=== PATIENT | female | born 1930 | race Asian ===

== ENCOUNTER 2016-08-18 05:50 | Inpatient (IN) | payer OTHER ==
[~2016-08-18] VITALS: Ht 152.4 cm; Wt 67.6 kg
[2016-08-18 07:37] LABS: BASOPHILS # (AUTO) 0.1 K/uL (0.00-0.22); BASOPHILS % (AUTO) 1.3 % (0.0-2.0); EOSINOPHILS # (AUTO) 0.2 K/uL (0-0.4); EOSINOPHILS % (AUTO) 2.3 % (0.0-4.0); HEMATOCRIT 39.1 % (36-48); HEMOGLOBIN 13.1 g/dL (12.0-16.0); LYMPHOCYTES # (AUTO) 2.1 K/uL (2.5-16.5); LYMPHOCYTES % (AUTO) 25.4 % (20.5-51.1); MEAN CORPUSCULAR HEMOGLOBIN 31 pg (27-31); MEAN CORPUSCULAR HGB CONC 34 g/dL (33-37); MEAN CORPUSCULAR VOLUME 92 fL (80-94); MONOCYTES # (AUTO) 0.8 K/uL (0.8-1.0); MONOCYTES % (AUTO) 10.2 % (1.7-9.3); NEUTROPHILS # (AUTO) 5.1 K/uL (1.8-7.7); NEUTROPHILS % (AUTO) 60.8 % (42.2-75.2); PLATELET COUNT (AUTO) 186 K/uL (140-450); RED BLOOD CELL COUNT(AUTO) 4.25 MIL/uL (4.20-5.40); RED CELL DISTRIBUTION WIDTH 12.2 % (11.6-13.7); WHITE BLOOD COUNT (AUTO) 8.3 K/uL (4.8-10.8)
[2016-08-18 07:41] LABS: ALANINE AMINOTRANSFERASE 28 U/L (12-78); ALBUMIN 3.4 g/dL (3.4-5.0); ALKALINE PHOSPHATASE 43 U/L (46-116); ANION GAP 9.4 (8-16); ASPARTATE AMINOTRANSFERASE 21 U/L (15-37); CALCIUM 9.1 mg/dL (8.5-10.1); CARBON DIOXIDE 31.5 mmol/L (21-32); CHLORIDE 106 mmol/L (98-107); CREATININE 0.8 mg/dL (0.6-1.3); GLUCOSE 140 mg/dL (74-106); POTASSIUM 3.9 mmol/L (3.5-5.1); SODIUM SERUM 143 mmol/L (136-145); TOTAL BILIRUBIN 0.6 mg/dL (0.0-1.0); TOTAL PROTEIN, SERUM 7.7 g/dL (6.4-8.2); UREA NITROGEN, BLOOD 25 mg/dL (7-18)
[2016-08-18] MEDS ORDERED: ONDANSETRON 4 MG/2 ML VIAL IVP PRN ×2 (08:15→08:55)
[2016-08-18] MEDS ORDERED: LIDOCAINE 2% 100 MG/5 ML SYR IVP ONE ×2 (08:23)
[2016-08-18] MEDS ORDERED: SEVOFLURANE 250 ML BTL INH ONE (08:23)
[2016-08-18] MEDS ORDERED: PROPOFOL 200 MG/20 ML VIAL IV ONE (08:23)
[2016-08-18] MEDS ORDERED: [UNRECOGNIZED DRUG - CODE] IV (08:37)
[2016-08-18] MEDS ORDERED: [UNRECOGNIZED DRUG - CODE] IM (08:37)
[2016-08-18] MEDS ORDERED: MECL-272 PO (08:37)
[2016-08-18] MEDS ORDERED: AMLO-27 PO (08:37)
[2016-08-18] MEDS ORDERED: KETO10SO RIGHT EYE (08:37)
[2016-08-18] MEDS ORDERED: XALOS OP (08:37)
[2016-08-18] MEDS ORDERED: DICL3GEL5 TP (08:37)
[2016-08-18] MEDS ORDERED: KETO10SO LEFT EYE (08:37)
[2016-08-18] MEDS ORDERED: fentaNYL 0.05 MG/ML VIAL ONE (08:45)
[2016-08-18] MEDS: HYDROmorphone 1 MG/ML AMP IVP PRN ×4 (09:52→10:22)
[2016-08-18] MEDS ORDERED: HYDROmorphone PFS 2 MG/ML SYR ONE (09:56)
[2016-08-18 11:00] VITALS: BP 135/65
--- NOTE | 2016-08-18 11:00 | NUR ---
PATIENT RECEIVED IN THE UNIT. PATIENT S/P VAGINAL HYSTERECTOMY AND A&P. PATIENT ASLEEP BUT AROUSABLE. NO S/S OF DISTRESS NOTED. VSS WITHIN NORMAL LIMITS. PATIENT ON ROOM AIR. DUMONT CATHETER IN PLACE DRAINING CLEAR YELLOW URINE. BED LOWERED WITH CALL LIGHT WITHIN REACH. WILL CONTINUE TO MONITOR
--- NOTE | 2016-08-18 12:59 | NUR ---
CM NOTE INITIAL REVIEW FAXED TO [facility] [phone]
--- NOTE | 2016-08-18 13:00 | NUR ---
PATIENT ASLEEP IN BED. NO S/S OF DISTRESS NOTED. FAMILY MEMBERS PRESENT AT BEDSIDE
[2016-08-18] MEDS: MORPHINE SULFATE 4 MG/ML SYR IM/IVP PRN (15:31)
[2016-08-18 16:00] VITALS: BP 147/68
--- NOTE | 2016-08-18 17:12 | NUR ---
PATIENT TURNED AND REPOSITIONED FOR COMFORT. PATIENT GIVEN PERINEAL CARE. MINIMAL SANGIOUNOS DRAINAGE NOTED. NO S/S OF DISTRESS NOTED. PATIENT'S DAUGHTER PRESENT IN THE ROOM
--- NOTE | 2016-08-18 19:21 | NUR ---
PATIENT REPORT GIVEN AT BEDSIDE. PATIENT ENDORSED IN STABLE CONDITION
--- NOTE | 2016-08-18 19:22 | NUR ---
RESTING IN BED, AWAKE, A/OX3. S/P VAGINAL HYSTERECTOMY THIS MORNING. RESPIRATION EVEN AND UNLABORED. IV SALINE LOCK AT THE LEFT HAND G20, PATENT AND INTACT. F/C DRAINING CLEAR YELLOW URINE. ON BILATERAL LEG SEQUENTIALS. NO ACTIVE BLEEDING NOTED. PLAN OF CARE DISCUSSED WITH PATIENT AND DAUGHTER. VERBALIZED UNDERSTANDING. DENIES PAIN 0/10.
--- NOTE | 2016-08-18 23:00 | NUR ---
CHECKED PATIENT, RESTING COMFORTABLY SLEEPING IN BED, NO COMPLAINT OF PAIN, 0/10.
[2016-08-19] VITALS: BP 108/62
[2016-08-19 01:27] VITALS: BP 107/60
[2016-08-19] MEDS: MORPHINE SULFATE 4 MG/ML SYR IM/IVP PRN (01:36)
--- NOTE | 2016-08-19 02:10 | NUR ---
ASLEEP IN BED AFTER PAIN MEDICATION GIVEN.
--- NOTE | 2016-08-19 06:20 | NUR ---
AMBULATED TO BR TO HAVE BM, UNABLE TO HAVE ONE.
--- NOTE | 2016-08-19 06:45 | NUR ---
DR. Lana MADERA CAME, CHECKED PATIENT. WILL FOLLOW UP WITH NEW ORDERS. CONDITION REMAIN STABLE. WILL ENDORSE TO AM NURSE FOR CONTINUITY OF CARE.
[2016-08-19] MEDS ORDERED: BISACODYL 10 MG SUPP RC SCH (07:00)
[2016-08-19 07:02] LABS: BASOPHILS # (AUTO) 0.1 K/uL (0.00-0.22); BASOPHILS % (AUTO) 0.6 % (0.0-2.0); EOSINOPHILS # (AUTO) 0.2 K/uL (0-0.4); EOSINOPHILS % (AUTO) 1.3 % (0.0-4.0); HEMOGLOBIN 10.4 g/dL (12.0-16.0); LYMPHOCYTES # (AUTO) 1.6 K/uL (2.5-16.5); LYMPHOCYTES % (AUTO) 9.9 % (20.5-51.1); MEAN CORPUSCULAR HEMOGLOBIN 30 pg (27-31); MEAN CORPUSCULAR HGB CONC 33 g/dL (33-37); MEAN CORPUSCULAR VOLUME 93 fL (80-94); MONOCYTES # (AUTO) 1.7 K/uL (0.8-1.0); MONOCYTES % (AUTO) 10.3 % (1.7-9.3); NEUTROPHILS # (AUTO) 12.7 K/uL (1.8-7.7); NEUTROPHILS % (AUTO) 77.9 % (42.2-75.2); PLATELET COUNT (AUTO) 174 K/uL (140-450); RED BLOOD CELL COUNT(AUTO) 3.45 MIL/uL (4.20-5.40); RED CELL DISTRIBUTION WIDTH 12.1 % (11.6-13.7); WHITE BLOOD COUNT (AUTO) 16.3 K/uL (4.8-10.8)
--- NOTE | 2016-08-19 07:15 | NUR ---
RECEIVED PATIENT REPORT AT BEDSIDE. PATIENT AWAKE, ALERT AWAKE AND ORIENTED. NO S/S OF DISTRESS NOTED. PATIENT O ROOM AIR. NO C/O PAIN AT THIS TIME. PATIENT'S FAMILY MEMBERS PRESENT AT BEDSIDE. BED LOWERED WITH CALL LIGHT WITHIN REACH. WILL CONTINUE TO MONITOR
[2016-08-19 08:00] VITALS: BP 96/61
--- NOTE | 2016-08-19 09:17 | NUR ---
PATIENT HAS BEEN SCREENED AND CATEGORIZED MODERATE NUTRITION RISK. PATIENT WILL BE SEEN WITHIN 3-5 DAYS OF ADMISSION. 08/20/16-08/22/[address]
--- NOTE | 2016-08-19 09:42 | NUR ---
CM NOTE CONCURRENT REVIEW FAXED TO [facility] [phone]
[2016-08-19] MEDS: ACETAMINOPHEN/CODEINE 300/30MG 1 TAB PO PRN ×3 (10:26→21:08)
[2016-08-19] MEDS: METOCLOPRAMIDE 10 MG TAB PO SCH ×4 (10:27→20:51)
[2016-08-19] MEDS ORDERED: BISACODYL 5 MG TABEC PO SCH (10:57)
--- NOTE | 2016-08-19 11:00 | NUR ---
PATIENT ASLEEP IN BED. NO S/S OF DISTRESS NOTED
[2016-08-19] MEDS ORDERED: MENTHOL/METHYL 10%-15% 114 GM TUBE TP PRN ×2 (11:30→13:04)
--- NOTE | 2016-08-19 12:30 | NUR ---
PATIENT TOLERATING REGULAR DIET WELL. NO S/S OF DISTRESS NOTED
[2016-08-19 16:00] VITALS: BP 115/63
--- NOTE | 2016-08-19 16:50 | NUR ---
PATIENT AMBULATED WITH ASSIST TO THE BATHROOM TO VOID
--- NOTE | 2016-08-19 19:42 | NUR ---
PATIENT REPORT GIVEN AT BEDSIDE. PATIENT ENDORSED IN STABLE CONDITION
--- NOTE | 2016-08-19 19:45 | NUR ---
RECEIVED REPORT FROM AYAN VILLANUEVA. INITIAL ASSESSMENT COMPLETED. PT IS AWAKE, ALERT,ORIENTED. FAMILY AT BEDSIDE WITH THE PATIENT. IV ACCESS AT LEFT WRIST 20,ON SALINE LOCK, PATENT,INTACT AT THIS TIME. DENIES PAIN AT THIS TIME. NO ACTIVE BLEEDING NOTED. BED IN LOW POSITION, SAFETY MEASURE ENSURE,WILL CONTINUE TO MONITOR.
--- NOTE | 2016-08-19 21:00 | NUR ---
MEDS GIVEN ORDERED. PT TOLERATED WELL. COMPLAINT OF PAIN 5/10 , PAIN MED PO PRN GIVEN ORDERED. WILL CONTINUE TO MONITOR.
[2016-08-20] VITALS: BP 112/58
--- NOTE | 2016-08-20 00:10 | NUR ---
PT ASLEEP AT THIS TIME. DAUGHTER AT BEDSIDE.
--- NOTE | 2016-08-20 03:10 | NUR ---
NO SIGNS OF DISTRESS. WILL CONTINUE TO MONITOR.
--- NOTE | 2016-08-20 07:20 | NUR ---
REPORT GIVEN TO AYAN HUBBARD FOR CONTINUITY OF CARE. PT ASLEEP AT THIS TIME. NO SIGNS OF DISTRESS NOTED.
--- NOTE | 2016-08-20 07:21 | NUR ---
RECEIVED REPORT FROM NIGHT NURSE. PATIENT IS IN STABLE CONDITION, NO S/S OF ACUTE DISTRESS.
[2016-08-20 08:00] VITALS: BP 115/66
[2016-08-20] MEDS: METOCLOPRAMIDE 10 MG TAB PO SCH (08:28)
--- NOTE | 2016-08-20 09:00 | NUR ---
PATIENT ABLE TO AMBULATE SELF TO BATHROOM. NO S/S OF ACUTE DISTRESS. USES CANE FOR ASSIST.
[2016-08-20] MEDS ORDERED: IBUP-2213 PO (09:14)
[2016-08-20] MEDS ORDERED: BISA5TAB79 PO (09:15)
[2016-08-20] MEDS ORDERED: METO-486 PO (09:15)
--- NOTE | 2016-08-20 09:30 | NUR ---
SPOKE WITH DR. Lana MADERA. PATIENT OKAY TO BE DISCHARGED HOME WITH FOLLOW UP APPOINTMENTS. PT AND FAMILY MADE AWARE.
--- NOTE | 2016-08-20 09:40 | NUR ---
PATIENT DISCHARGE INSTRUCTIONS GIVEN TO PATIENT AND FAMILY AT BEDSIDE. FOLLOW UP TEACHING WITH APPOINTMENTS GIVEN. D/C MEDICATION PRESCRIPTION WITH MEDICATION TEACHING GIVEN. PATIENT IS AMBULATORY WITH CANE. ALERT AND ORIENTED. DENIES PAIN. NO S/S OF RESPIRATORY DISTRESS. IV REMOVED, CANULA INTACT.
--- NOTE | 2016-08-20 10:00 | NUR ---
PT NOTE 945 UNABLE TO SEE Pt FOR PT EVAL, Pt HAS BEEN DISCHARGED TO HOME PER RN. PVE(1)
--- NOTE | 2016-08-20 12:55 | NUR ---
CM NOTE CONCURRENT REVIEW AND DISCHARGE SUMMARY FAXED TO [facility] [phone]
== END 2016-08-20 09:40 | disposition home or self-care (01) | DRG 513 ==
LOC: MMU 05:50
PROVIDERS: ADMIT Obstetrics & Gynecology; ATTEND Obstetrics & Gynecology
PROC: 0JQC0ZZ Repair Pelvic Region Subcutaneous Tissue and Fascia, Open Approach (ICD-10-PCS; 2016-08-18)
PROC: 0TVD7ZZ Restriction of Urethra, Via Natural or Artificial Opening (ICD-10-PCS; 2016-08-18)
PROC: 0UT97ZZ Resection of Uterus, Via Natural or Artificial Opening (ICD-10-PCS; principal; 2016-08-18 13:15)
PROC: 0JQC0ZZ Repair Pelvic Region Subcutaneous Tissue and Fascia, Open Approach (ICD-10-PCS; 2016-08-18 13:15)
DX: N81.4 Uterovaginal prolapse, unspecified (principal); I10 Essential (primary) hypertension; N81.6 Rectocele; N39.46 Mixed incontinence
CPT/HCPCS: 36415; 71010; 80053; 85025; 87081; 88305; 93005; J0690; J1170; J2001; J2270; J2405; J2704; J3010; J7030; J7060; J7120; J8597; Q0092